=== PATIENT | male | born 1945 | race Caucasian/White ===

== ENCOUNTER 2022-09-02 10:38 | Day surgery (SDC) | payer OTHER ==
[~2022-09-02] VITALS: Ht 177.8 cm; Wt 100.2 kg
[2022-09-02] MEDS ORDERED: SILD25T PO (11:06)
[2022-09-02] MEDS ORDERED: HYDCHL25 PO (11:07)
[2022-09-02] MEDS ORDERED: ZOCOR20 MG PO (11:08)
[2022-09-02] MEDS ORDERED: LEVSOD150 PO (11:08)
[2022-09-02] MEDS ORDERED: KETO.5OPSO (11:09)
[2022-09-02] MEDS ORDERED: SIMBRINZA 1%-0.28 M1 (11:09)
[2022-09-02] MEDS ORDERED: LATANOPROST 0.7.5 M3 (11:10)
[2022-09-02] MEDS ORDERED: OCUFLOX5 M3 (11:10)
[2022-09-02] MEDS ORDERED: PREDNISOLONE ACE5 ML (11:11)
--- NOTE | 2022-09-02 12:30 | NUR ---
09/02/22 1230 Hebert Marte 10MLS OF BUPIVICAINE 0.25% MIXED 1:1 WITH 10MLS OF BUPIVICAINE 0.75% TO CREATE A LOCAL SOLUTION OF BUPIVICAINE 0.5% FOR INJECTION.
== END 2022-09-02 13:46 | disposition home or self-care (01) ==
LOC: ORSCSDS 10:38
PROVIDERS: Surgery
PROC: 0WUF0JZ Supplement Abdominal Wall with Synthetic Substitute, Open Approach (ICD-10-PCS; principal; 2022-09-02 12:00)
DX: K42.9 Umbilical hernia without obstruction or gangrene (principal); I10 Essential (primary) hypertension; E66.9 Obesity, unspecified; Z68.31 Body mass index [BMI] 31.0-31.9, adult; Z86.79 Personal history of other diseases of the circulatory system; E03.9 Hypothyroidism, unspecified; Z87.891 Personal history of nicotine dependence; Z79.899 Other long term (current) drug therapy
CPT/HCPCS: C1781; J1100; J2250; J2370; J2405; J2704; J3010

== ENCOUNTER 2023-02-18 21:54 | Observation (INO) | payer OTHER ==
[~2023-02-18] VITALS: Ht 182.9 cm; Wt 104.5 kg
[~2023-02-18 21:54] MED LIST: HYDCHL25 PO; KETO.5OPSO BOTHEYES; LATANOPROST 0.7.5 M3 BOTHEYES; LEVSOD150 PO; OCUFLOX5 M3 BOTHEYES; PREDNISOLONE ACE5 ML BOTHEYES; SILD25T PO; SIMBRINZA 1%-0.28 M1 BOTHEYES; ZOCOR20 MG PO
[2023-02-18 22:18] LABS: BASOPHILS ABSOLUTE AUTO 0.05 K/mm3 (0.00-0.23); BASOPHILS PERCENT AUTO 1 % (0-2); EOSINOPHILS ABSOLUTE AUTO 0.36 K/mm3 (0.00-0.68); EOSINOPHILS PERCENT AUTO 3 % (0-6); Hematocrit 44.8 % (37.0-53.0); Hemoglobin 14.9 g/dL (13.5-17.5); IMMATURE GRAN ABSOLUTE AUTO 0.04 K/mm3 (0.00-0.10); IMMATURE GRAN PERCENT AUTO 0 % (0-1); LYMPHOCYTES ABSOLUTE AUTO 4.55 K/mm3 (0.84-5.20); LYMPHOCYTES PERCENT AUTO 42 % (21-46); MONOCYTES ABSOLUTE AUTO 1.18 K/mm3 (0.16-1.47); MONOCYTES PERCENT AUTO 11 % (4-13); Mean Corpuscular HGB 31.4 pg (26.0-34.0); Mean Corpuscular HGB Conc 33.3 g/dL (31.5-36.5); Mean Corpuscular Volume 94 fL (80-100); Mean Platelet Volume 10.4 fL (9.1-12.4); NEUTROPHILS ABSOLUTE AUTO 4.55 K/mm3 (1.96-9.15); NEUTROPHILS PERCENT AUTO 42 % (41-73); Platelet Count 165 K/mm3 (150-400); RDW Coefficient Variation 12.7 % (11.7-14.2); RDW Standard Deviation 43.9 fL (35.1-46.3); Red Blood Cell Count 4.75 M/mm3 (4.30-5.90); White Blood Cell Count 10.73 K/mm3 (4.00-11.30)
[2023-02-18 22:57] LABS: Alanine Aminotransfer (ALT/SGP 21 U/L (12-78); Albumin, Blood 3.7 g/dL (3.4-5.0); Albumin/Globulin Ratio 1.1 (0.8-1.8); Alk Phos 65 U/L (50-136); Anion Gap 4 mmol/L (6-16); Aspartate Aminotrans (AST/SGOT 27 U/L (12-37); Bilirubin, Total 0.3 mg/dL (0.1-1.0); Blood Urea Nitrogen 23 mg/dL (8-24); Bun/Creatinine Ratio 20.2 (12.0-20.0); CO2, Blood 30 mmol/L (21-32); Chloride, Blood 104 mmol/L (98-108); Creatinine, Blood 1.14 mg/dL (0.60-1.20); Ethanol (Alcohol), Blood, Med <3 mg/dL; Globulin, Blood 3.3 g/dL (2.2-4.0); Glomerular Filtration Rate 66 (60-); Glucose, Blood 130 mg/dL (70-99); Potassium, Blood 3.7 mmol/L (3.5-5.5); Sodium, Blood 138 mmol/L (136-145)
[2023-02-18] MEDS ORDERED: VITAMIN D325 MC3 PO (23:31)
--- NOTE | 2023-02-19 02:28 | NUR ---
PT ARRIVED ON UNIT AT ~0115. AOX3-4. ALMOST COMPLETELY ORIENTED. VERY PLEASANT AND COOPERATIVE WITH CARE. DAUGHTERS ARRIVED ON FLOOR WITH HIM. TELEMETRY PLACED PER DR. RYAN. R SIDED WEAKNESS NOTED ON EXAM ALTHOUGH VERY MINOR. STRENGTH PRESENT BILATERALLY ON UPPER AND LOWER EXTREMITIES. TRANSFERRED WELL FROM [facility] TO BED, STEADY ON FEET. CARDIAC DIET. CBG CHECK PRN FOR S/S OF HYPOGLYCEMIA. PT DENIES PAIN OF ANY KIND. ABLE TO MAKE NEEDS KNOWN. CALL LIGHT LEFT WITHIN REACH.
--- NOTE | 2023-02-19 03:53 | NUR ---
PT HAS BEEN SLEEPING IN BED SINCE ADMISSION ASSESSMENT. FAMILY HAS BEEN IN ROOM WITH PT SINCE ARRIVING ON UNIT. PT HAS CONTINUED TO DENY ANY PAIN. TELE RUNNING NSR. BED LOCKED IN LOWEST POSITION. CALL LIGHT LEFT WITHIN REACH.
[2023-02-19 05:28] LABS: BASOPHILS ABSOLUTE AUTO 0.03 K/mm3 (0.00-0.23); BASOPHILS PERCENT AUTO 0 % (0-2); EOSINOPHILS ABSOLUTE AUTO 0.03 K/mm3 (0.00-0.68); EOSINOPHILS PERCENT AUTO 0 % (0-6); Hematocrit 42.6 % (37.0-53.0); Hemoglobin 14.4 g/dL (13.5-17.5); IMMATURE GRAN ABSOLUTE AUTO 0.05 K/mm3 (0.00-0.10); IMMATURE GRAN PERCENT AUTO 0 % (0-1); LYMPHOCYTES PERCENT AUTO 14 % (21-46); MONOCYTES ABSOLUTE AUTO 0.91 K/mm3 (0.16-1.47); MONOCYTES PERCENT AUTO 8 % (4-13); Mean Corpuscular HGB 31.8 pg (26.0-34.0); Mean Corpuscular HGB Conc 33.8 g/dL (31.5-36.5); Mean Corpuscular Volume 94 fL (80-100); Mean Platelet Volume 10.3 fL (9.1-12.4); NEUTROPHILS ABSOLUTE AUTO 9.38 K/mm3 (1.96-9.15); NEUTROPHILS PERCENT AUTO 78 % (41-73); Platelet Count 147 K/mm3 (150-400); RDW Coefficient Variation 12.7 % (11.7-14.2); RDW Standard Deviation 43.9 fL (35.1-46.3); Red Blood Cell Count 4.53 M/mm3 (4.30-5.90)
[2023-02-19 05:58] LABS: Albumin, Blood 3.5 g/dL (3.4-5.0); Albumin/Globulin Ratio 1.1 (0.8-1.8); Bilirubin, Total 0.5 mg/dL (0.1-1.0); Bun/Creatinine Ratio 20.6 (12.0-20.0); Creatinine, Blood 1.02 mg/dL (0.60-1.20); Globulin, Blood 3.1 g/dL (2.2-4.0); Potassium, Blood 4.2 mmol/L (3.5-5.5); Total Protein, Blood 6.6 g/dL (6.4-8.2)
[2023-02-19] MEDS ORDERED: ATORVASTATIN CA80 M1 PO (15:44)
[2023-02-19] MEDS ORDERED: ASPI81CH PO (15:45)
--- NOTE | 2023-02-19 17:18 | NUR ---
PT DISCHARGED FROM THE UNIT. IVS REMOVED. DISCHARGE INSTRUCTIONS REVIEWED. INSTUCTED ON FOLLOW UP APTS. MEDICATIONS FAXED TO [facility].
== END 2023-02-19 17:14 | disposition home or self-care (01) ==
LOC: ER 21:54 → MEDS 21:55
PROVIDERS: Emergency Medicine; ADMIT Student in an Organized Health Care Education/Training Program
DX: G45.1 Carotid artery syndrome (hemispheric) (principal); I65.22 Occlusion and stenosis of left carotid artery; E03.9 Hypothyroidism, unspecified; Z18.89 Other specified retained foreign body fragments; I25.2 Old myocardial infarction; E78.5 Hyperlipidemia, unspecified; I10 Essential (primary) hypertension
CPT/HCPCS: 36415; 70450; 70496; 70498; 71045; 80053; 83735; 84443; 85025; 93005; 93010; 93306; 96372; 97161; 99285-25; A9270; G0378; G0480; J1650; Q9967

== ENCOUNTER 2025-09-09 15:46 | Inpatient (IN) | payer OTHER ==
[~2025-09-09] VITALS: Ht 177.8 cm; Wt 105.2 kg
[~2025-09-09 15:46] MED LIST changes: +ASPI81CH PO; +ATORVASTATIN CA80 M1 PO; +VITAMIN D325 MC3 PO
[2025-09-09 16:29] LABS: BASOPHILS ABSOLUTE AUTO 0.04 K/mm3 (0.00-0.23); BASOPHILS PERCENT AUTO 0 % (0-2); EOSINOPHILS ABSOLUTE AUTO 0.08 K/mm3 (0.00-0.68); EOSINOPHILS PERCENT AUTO 1 % (0-6); Hematocrit 49.9 % (37.0-53.0); Hemoglobin 16.9 g/dL (13.5-17.5); IMMATURE GRAN ABSOLUTE AUTO 0.05 K/mm3 (0.00-0.10); IMMATURE GRAN PERCENT AUTO 0 % (0-1); LYMPHOCYTES ABSOLUTE AUTO 2.42 K/mm3 (0.84-5.20); LYMPHOCYTES PERCENT AUTO 20 % (21-46); MONOCYTES ABSOLUTE AUTO 2.07 K/mm3 (0.16-1.47); MONOCYTES PERCENT AUTO 17 % (4-13); Mean Corpuscular HGB Conc 33.9 g/dL (31.5-36.5); Mean Corpuscular Volume 92 fL (80-100); NEUTROPHILS ABSOLUTE AUTO 7.69 K/mm3 (1.96-9.15); NEUTROPHILS PERCENT AUTO 62 % (41-73); NRBC ABSOLUTE 0.00 K/mm3 (0.00-0.02); NRBC Auto 0.0 /100 WBC (0.0-0.2); Platelet Count 178 K/mm3 (150-400); RDW Coefficient Variation 13.8 % (11.7-14.2); RDW Standard Deviation 46.5 fL (35.1-46.3)
[2025-09-09 16:57] LABS: Alanine Aminotransfer (ALT/SGP 24.0 U/L (12-78); Albumin, Blood 4.1 g/dL (3.4-5.0); Albumin/Globulin Ratio 1.1 (0.8-1.8); Anion Gap 10.0 mmol/L (3-11); Aspartate Aminotrans (AST/SGOT 28.0 U/L (12-37); Bilirubin, Total 1.1 mg/dL (0.1-1.0); Blood Urea Nitrogen 42.0 mg/dL (8-24); CO2, Blood 30.0 mmol/L (21-32); Calcium, Blood 10.2 mg/dL (8.5-10.1); Chloride, Blood 96.0 mmol/L (98-108); Creatinine, Blood 1.26 mg/dL (0.60-1.20); Globulin, Blood 3.6 g/dL (2.2-4.0); Glucose, Blood 125.0 mg/dL (70-99); Potassium, Blood 4.4 mmol/L (3.5-5.5); Sodium, Blood 132.0 mmol/L (136-145); Total Protein, Blood 7.7 g/dL (6.4-8.2)
[2025-09-09] MEDS ORDERED: Metoclopramide HCl 5MG / ML 2ML Vial IV ONE (18:20)
[2025-09-09] MEDS ORDERED: FLU VACC TS2025(65UP)/MF59C/PF 45 MCG/0.5 ML SYRINGE IM SCH (18:45)
[2025-09-09] MEDS ORDERED: Morphine Sulfate 4 MG/1 ML Injection IV PRN (18:45)
[2025-09-09] MEDS ORDERED: Naloxone HCl 0.4MG / ML 1ML Vial IV PRN (18:45)
[2025-09-09] MEDS ORDERED: Ondansetron HCl 2 MG / ML 2ML Vial IV PRN (18:50)
[2025-09-09] MEDS ORDERED: NS 1,000 ML IV SCH (19:00)
[2025-09-09 19:25] LABS: Source, Urine Voided
[2025-09-09] MEDS ORDERED: LORazepam 2 MG/ML 1ML Injection IV PRN (19:25)
[2025-09-09 19:39] LABS: Bilirubin, Urine Neg (Neg); Color, Urine Yellow (P-Yellow); Glucose Qualitative, Urine Neg (Neg); Ketones, Urine Neg (Neg); Leukocyte Esterase, Urine Neg (Neg); Protein, Urine 2+ (Neg); Specific Gravity, Urine 1.010 (1.003-1.022); Urobilinogen, Urine NORM (Normal)
[2025-09-09 19:59] LABS: White Blood Cells, Urine 0-2 /hpf (0-5)
[2025-09-09 20:41] LABS: Prothrombin Time Results 11.0 Sec (9.7-11.5)
--- NOTE | 2025-09-09 21:20 | NUR ---
PT ARRIVES TO ROOM FROM ED VIA GURNEY; STANDS AND MOVES TO BED WITH SBA. PT DAUGHTER (VALERIE) AT BEDSIDE. PT AND FAMILY ORIENTED TO ROOM.
[2025-09-09 21:27] VITALS: BP 148/87
[2025-09-09 22:38] LABS: Magnesium, Blood 2.4 mg/dL (1.6-2.4); Phosphorus, Blood 4.1 mg/dL (2.5-4.9)
[2025-09-09] MEDS ORDERED: ALBU90OI INH (22:46)
[2025-09-09] MEDS ORDERED: MOME220I INH (22:46)
[2025-09-09 23:57] VITALS: BP 144/80
[2025-09-10 03:55] VITALS: BP 140/70
[2025-09-10 04:07] LABS: BASOPHILS ABSOLUTE AUTO 0.03 K/mm3 (0.00-0.23); BASOPHILS PERCENT AUTO 0 % (0-2); EOSINOPHILS ABSOLUTE AUTO 0.07 K/mm3 (0.00-0.68); EOSINOPHILS PERCENT AUTO 1 % (0-6); Hematocrit 51.2 % (37.0-53.0); Hemoglobin 16.9 g/dL (13.5-17.5); IMMATURE GRAN ABSOLUTE AUTO 0.03 K/mm3 (0.00-0.10); IMMATURE GRAN PERCENT AUTO 0 % (0-1); LYMPHOCYTES ABSOLUTE AUTO 1.88 K/mm3 (0.84-5.20); LYMPHOCYTES PERCENT AUTO 22 % (21-46); MONOCYTES ABSOLUTE AUTO 1.51 K/mm3 (0.16-1.47); MONOCYTES PERCENT AUTO 17 % (4-13); Mean Corpuscular HGB Conc 33.0 g/dL (31.5-36.5); Mean Corpuscular Volume 93 fL (80-100); NEUTROPHILS ABSOLUTE AUTO 5.17 K/mm3 (1.96-9.15); NEUTROPHILS PERCENT AUTO 60 % (41-73); NRBC ABSOLUTE 0.00 K/mm3 (0.00-0.02); NRBC Auto 0.0 /100 WBC (0.0-0.2); Platelet Count 194 K/mm3 (150-400); RDW Coefficient Variation 13.7 % (11.7-14.2); RDW Standard Deviation 46.4 fL (35.1-46.3)
--- NOTE | 2025-09-10 04:20 | NUR ---
SHIFT SUMMARY NO ACUTE EVENTS OVERNIGHT. PT WITH NG TUBE PLACED IN ED; CONNECTED TO LIS AND WITH DARK OUTPUT. PT REPORTS FEELING RELIEF AFTER TUBE WAS PLACED. PT PASSING FLATUS DURING NOC SHIFT. PT DID NOT NEED MEDICATION FOR PAIN/NAUSEA OF THIS NOTE. PT REMAINS NPO.
[2025-09-10 04:29] LABS: Alanine Aminotransfer (ALT/SGP 24.0 U/L (12-78); Albumin, Blood 4.1 g/dL (3.4-5.0); Albumin/Globulin Ratio 1.1 (0.8-1.8); Anion Gap 9.0 mmol/L (3-11); Aspartate Aminotrans (AST/SGOT 33.0 U/L (12-37); Bilirubin, Total 1.3 mg/dL (0.1-1.0); Blood Urea Nitrogen 43.0 mg/dL (8-24); CO2, Blood 31.0 mmol/L (21-32); Calcium, Blood 9.9 mg/dL (8.5-10.1); Chloride, Blood 97.0 mmol/L (98-108); Creatinine, Blood 1.26 mg/dL (0.60-1.20); Globulin, Blood 3.6 g/dL (2.2-4.0); Glucose, Blood 136.0 mg/dL (70-99); Magnesium, Blood 2.7 mg/dL (1.6-2.4); Potassium, Blood 4.2 mmol/L (3.5-5.5); Sodium, Blood 133.0 mmol/L (136-145); Total Protein, Blood 7.7 g/dL (6.4-8.2)
[2025-09-10 07:09] VITALS: BP 139/80
[2025-09-10] MEDS ORDERED: Ipratropium/Albuterol SulF 2.5-0.5MG/3 ML Amp INH PRN (09:05)
--- NOTE | 2025-09-10 09:53 | NUR ---
HALIMA/RT IN TO SEE PT. PT REPORTING DIFFICULTY BREATHING, STATING FEELS LIKE "AIR LOCK" IN CHEST. 02 SATS 93% ON RA. RT IN TO SEE PT.
[2025-09-10 12:20] VITALS: BP 142/84
[2025-09-10 15:37] VITALS: BP 148/85
[2025-09-10] MEDS ORDERED: Mometasone Furoate Inhaler 220 mcg 14 ACT INH SCH (15:40)
[2025-09-10] MEDS ORDERED: Albuterol HFA200 ACT/6.7 GM INH INH PRN (15:55)
--- NOTE | 2025-09-10 17:09 | NUR ---
SHIFT SUMMARY NG CONTINUES TO PUT OUT DARK FLUID. PT DENIES COMPLAINTS AT THIS TIME. PT HAS HAD HICCUPS ALL DAY. NOT HAPPENING WHEN SLEEPING. DAUGHTER AT BEDSIDE. WILL CONTINUE TO MONITOR.
[2025-09-10 20:58] VITALS: BP 122/63
[2025-09-10] MEDS ORDERED: Ofloxacin 0.3% Opth Soln 5 ML BOTHEYES SCH (21:00)
[2025-09-10] MEDS ORDERED: Metoclopramide HCl 5MG / ML 2ML Vial IV ONE (21:10)
[2025-09-10 21:46] LABS: Anion Gap 10.0 mmol/L (3-11); Blood Urea Nitrogen 42.0 mg/dL (8-24); CO2, Blood 26.0 mmol/L (21-32); Calcium, Blood 9.5 mg/dL (8.5-10.1); Chloride, Blood 103.0 mmol/L (98-108); Creatinine, Blood 1.08 mg/dL (0.60-1.20); Glucose, Blood 138.0 mg/dL (70-99); Potassium, Blood 4.0 mmol/L (3.5-5.5); Sodium, Blood 135.0 mmol/L (136-145)
[2025-09-11] VITALS (7 sets, daily range): BP systolic 103–135; BP diastolic 60–88
--- NOTE | 2025-09-11 04:54 | NUR ---
SHIFT SUMMARY: PT WITH NGT SET TO LIS. PT C/O INTRACTABLE HICCUPS GOT RELIEF FROM 10 OF IV REGLAN AND WOULD LIKE FOR REGLAN TO BE PUT ON EMAR PRN FOR USE NEEDED. NGT O/P OF [place]OUN 2000 THIS SHIFT. PATIENT HAS NOT HAD MUCH URINE OUTPUT THIS SHIFT DOES NOT C/O ANY SYMPTOMS RELATED TO URINARY RETENTION OR UTI SUCH BURNING. VITALS HAVE BEEN STABLE, AND NO ACUTE EVENTS WERE NOTED OVER NIGHT. BED IN LOW POSITION WITH BED ALARM ACTIVATED. CALL PATTERSON AND PERSONAL BELONGINGS WITHIN REACH. DAUGHTER AT B/S
--- NOTE | 2025-09-11 08:31 | NUR ---
PATIENT UP TO CHAIR A CHAIR.ORAL CARE ITEMS GIVEN.
--- NOTE | 2025-09-11 10:08 | NUR ---
NGT: PT UP TO CHANGE GOWN AND TRY TO USE URINAL. PT NGT SLIPPED OUT OF NOSE AND TO THE FLOOR HE STOOD. PT ABLE TO PASS FLATUS. 700CC IN NG CONTAINER AT THIS TIME. WILL SPEAK TO DOCTOR PRIOR TO REPLACING NGT. ABDOMEN SOFT. NO NAUSEA AT THIS TIME. EMESIS BAG PLACED IN REACH.
[2025-09-11] MEDS ORDERED: Metoclopramide HCl 5MG / ML 2ML Vial IV PRN (10:25)
[2025-09-11] MEDS ORDERED: NS 1,000 ML IV SCH (10:25)
--- NOTE | 2025-09-11 18:11 | NUR ---
PT HAS BEEN STABLE THIS SHIFT. NGT SLIPPED OUT THIS AM. PT HAS HAD NO NAUSEA OR EMESIS. PT PASSING OCCASIONAL FLATUS. REMAINS NPO. PT HAS AMBULATED IN THE HALLWAY WITH STAFF AND MOBILIZED TO CHAIR. IV FLUIDS INFUSING PER ORDERS. PT URINE OUTPUT IMPROVING. PULL UP ON FOR OCCASIONAL LEAKAGE. REGLAN PRN FOR HICCUPS. PT TO HAVE AM LABS. FAMILY AT BEDSIDE, ATTENTIVE.
--- NOTE | 2025-09-11 20:05 | NUR ---
CALL TO HOSPITALIST. PT HAVING IRREGULAR HEART RATE APICALLY AND DIFFICULT TO OBTAIN ACCURATE HEART RATE D/T ABDOMINAL HICCUPS. HEART RATE ON MONITOR FLUCTUATING BETWEEN 90S-130S ON CONTINUOUS BIOX. PT A/O X4, DENIES SOB OR CHEST PAIN/PRESSURE. NEW ORDER RECEIVED FOR TELEMETRY MONITORING.
--- NOTE | 2025-09-11 20:33 | NUR ---
CALL TO HOSPITALIST. PT PLACED ON TELEMETRY AND RHYTHM WAS AFIB AT 140BPM AT 2017. PT DENIES KNOWN HISTORY OF AFIB. AT 2023 THIS RN RECEIVED A CALL FROM TELEMETRY THAT PT CONVERTED TO NSR AT 96BPM. CALL PLACED TO HOSPITALIST TO NOTIFY OF THE ABOVE. NO NEW ORDERS AT THIS TIME.
[2025-09-12] VITALS (27 sets, daily range): BP systolic 98–141; BP diastolic 53–92
--- NOTE | 2025-09-12 02:42 | NUR ---
SPOKE WITH RT REGARDING DULERA INHALER ORDERED UNDER RT HEADING-RT STATED ASMANEX IS SUB FOR DULERA, AND ADMITTING RN NOTED PT TAKES ASMANEX AT HOME.
[2025-09-12 04:28] LABS: BASOPHILS ABSOLUTE AUTO 0.05 K/mm3 (0.00-0.23); BASOPHILS PERCENT AUTO 1 % (0-2); EOSINOPHILS ABSOLUTE AUTO 0.12 K/mm3 (0.00-0.68); EOSINOPHILS PERCENT AUTO 2 % (0-6); Hematocrit 49.8 % (37.0-53.0); Hemoglobin 16.4 g/dL (13.5-17.5); IMMATURE GRAN ABSOLUTE AUTO 0.08 K/mm3 (0.00-0.10); IMMATURE GRAN PERCENT AUTO 1 % (0-1); LYMPHOCYTES ABSOLUTE AUTO 2.59 K/mm3 (0.84-5.20); LYMPHOCYTES PERCENT AUTO 35 % (21-46); MONOCYTES ABSOLUTE AUTO 1.70 K/mm3 (0.16-1.47); MONOCYTES PERCENT AUTO 23 % (4-13); Mean Corpuscular HGB Conc 32.9 g/dL (31.5-36.5); Mean Corpuscular Volume 93 fL (80-100); NEUTROPHILS ABSOLUTE AUTO 2.87 K/mm3 (1.96-9.15); NEUTROPHILS PERCENT AUTO 39 % (41-73); NRBC ABSOLUTE 0.00 K/mm3 (0.00-0.02); NRBC Auto 0.0 /100 WBC (0.0-0.2); Platelet Count 196 K/mm3 (150-400); RDW Coefficient Variation 13.7 % (11.7-14.2); RDW Standard Deviation 46.9 fL (35.1-46.3)
[2025-09-12 04:47] LABS: Anion Gap 10.0 mmol/L (3-11); Blood Urea Nitrogen 62.0 mg/dL (8-24); CO2, Blood 24.0 mmol/L (21-32); Calcium, Blood 8.8 mg/dL (8.5-10.1); Chloride, Blood 107.0 mmol/L (98-108); Creatinine, Blood 1.34 mg/dL (0.60-1.20); Glucose, Blood 121.0 mg/dL (70-99); Potassium, Blood 3.7 mmol/L (3.5-5.5); Sodium, Blood 137.0 mmol/L (136-145)
[2025-09-12] MEDS ORDERED: Metoprolol Tartrate 1 MG/ML 5 ML VIAL IV ONE ×3 (05:25→22:45)
[2025-09-12] MEDS ORDERED: Potassium Chl 20MEQ/Water100ML 100 ML IV ONE (05:30)
[2025-09-12 05:41] LABS: Magnesium, Blood 2.8 mg/dL (1.6-2.4); Phosphorus, Blood 3.9 mg/dL (2.5-4.9)
--- NOTE | 2025-09-12 07:17 | NUR ---
SHIFT SUMMARY NOC/TELEMETRY EVENT. THIS RN NOTIFIED BY TELEMETRY OF CONVERTING FROM NSR TO AFIB/AFLUTTER APPROX 0500. VSS ASIDE FROM [place]. PT ASYMPTOMATIC. CALL TO HOSPITALIST, NEW ORDERS RECEIVED TO ADD MAG LEVEL, AND PHOS LEVEL, KCL PIGGY BACK 20MEQ X1 NOW, AND LOPRESSOR 5MG ONE TIME NOW. HEART RATE CAME DOWN AFTER LOPRESSOR, PT TOLERATED WELL. PT IMPULSIVE GETTING OUT OF BED, BEDALARM SET FOR SAFETY. DAUGHTER AT BEDSIDE T/O THE NIGHT. PT DENIES NAUSEA AND VOMITING, TOLERATED NG TUBE BEING OUT.
[2025-09-12] MEDS ORDERED: NS 1,000 ML IV SCH (08:50)
--- NOTE | 2025-09-12 10:12 | NUR ---
ASSUMED CARE OF PT @0700. AXO4. VSS WITH ASYMPTOMATIC AFLUTTER RVR 130'S. BP STABLE. IV POTASSIUM INFUSING - INFILTRATED - IV PULLED AND REPLACED, NOW BEING TOLERATED. PT ADVANCED TO CL DIET BY SURGEON - PT TOLERATED WELL. ABD WITH MILD DISTENSION - HICCUPS REMAIN. HAVING FLATULENCE. NO BM NOTED YET. URINE REMAINS DARELL. DR OLIVEIRA CALLED REGARDING CONTINUED AFLUTTER RVR 130'S. IV LOPRESSOR ORDERED - ADMINISTERED 5MG - TOLERATED WELL, BP STABLE, HR STARTED AT 132 AND DECREASED TO 125. PT ASYMPTOMATIC. DECISION MADE TO TRANSFER TO PCU STATUS - O BEDS AVAILABLE SO TRANSFERRING PT TO ICU 7 PCU STATUS. REPORT GIVEN TO ROMEO Jung RN. PT TRANSFERRED OUT OF UNIT @4879.
[2025-09-12] MEDS ORDERED: Heparin Sodium,Porcine/0.5 NS 500 ML IV SCH (11:10)
[2025-09-12] MEDS ORDERED: Heparin Sodium 5000 Units/ML 1ML MDV IV ONE (11:10)
--- NOTE | 2025-09-12 11:58 | NUR ---
UPDATE PT CONVERTING FROM AFLUTTER TO SR 70'S AT APPROX 1121. EKG DONE SHOWING SR W 1ST DEGREE AV BLOCK. DR. OLIVEIRA CALLED AND NOTIFIED OF CHANGE. DR. OLIVEIRA GIVING THIS RN VERBAL INSTRUCTIONS TO CONTINUE WITH THE HEPARIN GTT AND TO SLOWLY TITRATE THE PT OFF OF THE CARDIZEM GTT. GERONTOLOGICAL NURSE PRACTITIONER SIDDHARTHA Ziegler NOTIFIED.
--- NOTE | 2025-09-12 17:18 | NUR ---
SHIFT SUMMARY PATIENTS ABD MILDLY DISTENDED, BUT BOWEL TONES ARE PRESENT. PATIENT IS ABLE TO TOLERATE FULL LIQUID DIET WITH NO COMPLAINTS OF NAUSEA AND VOMITING. PATIENT CAME TO ICU IN AFIB RVR, BUT HAS BEEN IN SINUS RHYTHM WITH 1ST DEGREE BLOCK SINCE APPROX 1130. PATIENT IS A&OX4 AND ABLE TO MAKE NEEDS KNOWN. NO FOCAL DEFICITS. PATIENT IS ABLE TO TRANSFER TO A CHAIR WITH ONE ASSIST AND USE A URINAL WITH ASSISTANCE. PATIENT WAS BLADDER SCANNED AND HAD 297 IN HIS BLADDER. HEPARIN GTT INFUSING PER EMAR. SEE FLOWSHEET FOR TITRATIONS. FAMILY AT BEDSIDE THROUGHT THE SHIFT. CALL LIGHT NEAR.
[2025-09-12] MEDS ORDERED: Dose Adjust by Pharmacy XX STA (20:34)
[2025-09-13] VITALS (21 sets, daily range): BP systolic 83–119; BP diastolic 58–83
[2025-09-13 03:22] LABS: BASOPHILS ABSOLUTE AUTO 0.09 K/mm3 (0.00-0.23); BASOPHILS PERCENT AUTO 1 % (0-2); EOSINOPHILS ABSOLUTE AUTO 0.19 K/mm3 (0.00-0.68); EOSINOPHILS PERCENT AUTO 2 % (0-6); Hematocrit 47.9 % (37.0-53.0); Hemoglobin 15.7 g/dL (13.5-17.5); IMMATURE GRAN ABSOLUTE AUTO 0.11 K/mm3 (0.00-0.10); IMMATURE GRAN PERCENT AUTO 1 % (0-1); LYMPHOCYTES ABSOLUTE AUTO 2.65 K/mm3 (0.84-5.20); LYMPHOCYTES PERCENT AUTO 26 % (21-46); MONOCYTES ABSOLUTE AUTO 1.79 K/mm3 (0.16-1.47); MONOCYTES PERCENT AUTO 18 % (4-13); Mean Corpuscular HGB Conc 32.8 g/dL (31.5-36.5); Mean Corpuscular Volume 95 fL (80-100); NEUTROPHILS ABSOLUTE AUTO 5.29 K/mm3 (1.96-9.15); NEUTROPHILS PERCENT AUTO 52 % (41-73); NRBC ABSOLUTE 0.00 K/mm3 (0.00-0.02); NRBC Auto 0.0 /100 WBC (0.0-0.2); Platelet Count 187 K/mm3 (150-400); RDW Coefficient Variation 13.8 % (11.7-14.2); RDW Standard Deviation 48.1 fL (35.1-46.3)
[2025-09-13 03:37] LABS: Anion Gap 9.0 mmol/L (3-11); Blood Urea Nitrogen 39.0 mg/dL (8-24); CO2, Blood 22.0 mmol/L (21-32); Calcium, Blood 8.2 mg/dL (8.5-10.1); Chloride, Blood 113.0 mmol/L (98-108); Creatinine, Blood 1.01 mg/dL (0.60-1.20); Glucose, Blood 110.0 mg/dL (70-99); Magnesium, Blood 2.6 mg/dL (1.6-2.4); Potassium, Blood 3.8 mmol/L (3.5-5.5); Sodium, Blood 140.0 mmol/L (136-145)
[2025-09-13] MEDS ORDERED: Dose Adjust by Pharmacy XX STA ×2 (04:15→12:01)
[2025-09-13] MEDS ORDERED: Metoprolol Tartrate 1 MG/ML 5 ML VIAL IV PRN (05:10)
--- NOTE | 2025-09-13 06:24 | NUR ---
SHIFT SUMMARY: NO ACUTE CHANGES T/O THE NIGHT. PT REMAINS A&O X4, ABLE TO MAKE NEEDS KNOWN, COMMUNICATES APPROPRIATELY W/STAFF. SBA TO USE URINAL. AFEBRILE, DENIED ANY PAIN. SBP SOFT 90S-110S, MAP>65. PT HR SINUS AT START OF SHIFT, CONVERTED TO A-FLUTTER. HR 90-140S. METOPROLOL IV GIVEN ONCE THIS SHIFT DUE TO SUSTAINED HR IN 140S. SEE EMAR FOR ADMINISTRATION. PT REMAINS ON RA. DENIES SOB. BREATHS EVEN AND UNLABORED.SATS>92%. ABD MILDLY DISTENDED, FIRM. DENIES N/V. BT ACTIVE X4. TOLERATING CLEAR LIQUIDS. PT CONTINUES USING URINAL TO VOID. URINATING CONCENTRATED YELLOW URINE. PIV IN R WIRST AND RFA. THIS RN TO REPORT TO ONCOMING REUBEN
--- NOTE | 2025-09-13 07:00 | NUR ---
ASSUMPTION OF CARE ASSUMED CARE OF PATIENT AT APPROX 0700. PATIENT A&OX4 AND ABLE TO MAKE NEEDS KNOWN. HR AFLUTTER IN THE 110'S. BP STABLE WITH MAPS >65. PATIENT ON RA WITH SPO2 >94%. L/S CLEAR WITH WHEEZE. HEPARIN GTT INFUSING PER EMAR. DAUGHTER AT BEDSIDE. CALL LIGHT NEAR.
[2025-09-13] MEDS ORDERED: Amiodarone HCl 150 MG in NS 100 ML IV ONE (09:25)
[2025-09-13] MEDS ORDERED: Amiodarone HCl 450 MG in NS 250 ML IV SCH (09:25)
[2025-09-13] MEDS ORDERED: NS 500 ML IV SCH (10:00)
[2025-09-13] MEDS ORDERED: NS 1,000 ML IV SCH (16:00)
--- NOTE | 2025-09-13 18:07 | NUR ---
SHIFT SUMMARY PATIENT A&OX4, MOVES ALL LIMBS SPONTANEOUSLY. [place], BUT ABLE TO MAKE NEEDS KNOWN WITH CALL LIGHT. HR A FIB/FLUTTER IN THE 90S-110S. BP STABLE WITH MAPS >65. PATIENT ON RA WITH SPO2 >94%. PATIENT UP TO CHAIR WITH ONE ASSIST. PATIENT USES URINAL WITH ASSISTANCE WITH YELLOW URINE OUT. PATIENT TOLERATING FULL LIQUID DIET WITH NO COMPLAINTS OF N/V. PATIENT HAD BM X2 THIS SHIFT. PATIENT HAD HICCUPS OFF AND ON THROUGHTOUT THE SHIFT. HEPARIN AND AMIO GTTS RUNNING PER EMAR. AMIO CAN BE SHUT OFF AT 1030 ON 09/14. FAMILY AT BEDSIDE THROUGHOUT THE SHIFT UPDATED ON PLAN OF CARE. CALL LIGHT NEAR.
[2025-09-14] VITALS (10 sets, daily range): BP systolic 98–123; BP diastolic 54–107
[2025-09-14 04:04] LABS: Hematocrit 42.8 % (37.0-53.0); Hemoglobin 13.5 g/dL (13.5-17.5); Platelet Count 186 K/mm3 (150-400)
[2025-09-14 04:29] LABS: Anion Gap 10.0 mmol/L (3-11); Blood Urea Nitrogen 23.0 mg/dL (8-24); CO2, Blood 19.0 mmol/L (21-32); Calcium, Blood 7.8 mg/dL (8.5-10.1); Chloride, Blood 114.0 mmol/L (98-108); Creatinine, Blood 0.98 mg/dL (0.60-1.20); Glucose, Blood 118.0 mg/dL (70-99); Potassium, Blood 3.6 mmol/L (3.5-5.5); Sodium, Blood 139.0 mmol/L (136-145)
[2025-09-14] MEDS ORDERED: Dose Adjust by Pharmacy XX STA (04:56)
--- NOTE | 2025-09-14 05:46 | NUR ---
SHIFT SUMMARY: NO SIGNIFICANT OVERNIGHT CHANGES. PT REMAINS ON AMIO GTT AND REQUIRED PRN METOPROLOL FOR RATE CONTROL. REMAINS IN ATRIAL RHYTHM 100-140. BP IS STABLE. PT DENIES NAUSEA, PAIN, OR SHORTNESS OF BREATH. ONLY COMPLAINT IS TRANSIENT HICCUPS FOR THE LAST SEVERAL DAYS. NOTHING ELSE NOTABLE FROM THIS SHIFT.
[2025-09-14] MEDS ORDERED: CefTRIAXone 2000 MG Vial IM SCH (17:05)
[2025-09-14] MEDS ORDERED: MetroNIDAZOLE 500MG/NS 100 ml 100 ML IV SCH (17:10)
--- NOTE | 2025-09-14 17:14 | NUR ---
UPDATE: PT IS DROWSY, ORIENTED TO SELF/PLACE/YEAR, DISORIENTED TO SITUATION. MORE CONFUSED THAN THIS AM. PUPILS ARE EQUAL, AND REACTIVE. FOLLOWING COMMANDS.BP STABLE, HR 120'S. TEMP 102.4. PT C/O URGENCY WITH URINATION, FOUL STRONG SMELL NOTED, DARK DARELL IN COLOR. PT DENIES PAIN WITH URINATION. PT REMAINS ON RA WITH SPO2 ABOVE 92% NON-PRODUCTIVE COUGH NOTED. CALLED WITH ASSESSMENT FINDINGS; ORDERS FOR BLOOD CULTURES, URINALYSIS, AND ANTIBIOTICS GIVEN.
[2025-09-14 17:50] LABS: Source, Urine Straight Cath
[2025-09-14 17:58] LABS: Color, Urine Yellow (P-Yellow); Glucose Qualitative, Urine Neg (Neg); Ketones, Urine 1+ (Neg); Leukocyte Esterase, Urine 2+ (Neg); Protein, Urine 2+ (Neg); Specific Gravity, Urine 1.020 (1.003-1.022); Urobilinogen, Urine 1+ (Normal)
[2025-09-14] MEDS ORDERED: CefTRIAXone Sodium 2,000 MG in NS 100 ML IV SCH (18:00)
[2025-09-14 18:09] LABS: Bilirubin, Urine 1+ (Neg)
[2025-09-14 18:12] LABS: Red Blood Cells, Urine 0-2 /hpf (0-2)
--- NOTE | 2025-09-14 18:28 | NUR ---
SHIFT SUMMARY: SEE PREVIOUS NOTES. PT IS ALERT AND ORIENTED X 3, DISORIENTED TO SITUATION AT TIMES. PT DENIES ANY PAIN AT THIS TIME. PT ON 2L OF OXYGEN VIA NC, UNABLE TO OBTAIN CONSISTANT SPO2 MONITORING DUE TO AFIB. CHANGED EAR PROBE SITE. PT DENIES ANY SOB. NON-PRODUCTIVE COUGH NOTED. RR MID 20'S. SPO2 SPOT CHECK 95% WITH GOOD PLEATH. TMAX 102.4, ACETAMINOPHEN GIVEN PER JAN. PT IN AFIB WITH HR 120'S, MADE AWARE, PRN METROPOLOL IV GIVEN FOR RATE CONTROL. PT ON FULL LIQUID DIET, TOLERATING PO INTAKE, POOR APPETITE NOTED. PT HAD ONE LARGE LOOSE BM THIS AM, ALONG WITH TWO SMALL SOFT BROWN BOWEL MOVMENTS. PT PASSING GAS, ACTIVE BOWEL TONES IN ALL QUADRANTS. PT DENIES NAUSEA. MILD ABD DISTENTION NOTED, DENIES TENDERNESS. PT HAVING URGENCY WITH URINATION, STRONG FOUL ODOR NOTED, MD AWARE, URINALYSIS COLLECTED. URINE CLOUDY AND DARELL IN COLOR, PT INCONTINENT, PUREWICK IN PLACE. PT REPOSITIONED Q2HRS. HEPARIN INFUSING AT 14U/KG/HR. PLAN OF CARE ONGOING.
[2025-09-15] VITALS (10 sets, daily range): BP systolic 83–112; BP diastolic 53–75
--- NOTE | 2025-09-15 02:10 | NUR ---
PT TRANSFER AT 0204 TO [facility], BELONGINGS SENT WITH PT.
[2025-09-15 03:15] LABS: pH Blood Venous 7.45 (7.34-7.37)
[2025-09-15 03:25] LABS: Hematocrit 41.0 % (37.0-53.0); Hemoglobin 13.3 g/dL (13.5-17.5); Mean Corpuscular HGB Conc 32.4 g/dL (31.5-36.5); Mean Corpuscular Volume 93 fL (80-100); NRBC ABSOLUTE 0.00 K/mm3 (0.00-0.02); NRBC Auto 0.0 /100 WBC (0.0-0.2); Platelet Count 189 K/mm3 (150-400); RDW Coefficient Variation 13.8 % (11.7-14.2); RDW Standard Deviation 48.0 fL (35.1-46.3)
[2025-09-15 03:47] LABS: BAND PERCENT MAN 9 % (0-8); BASOPHILS ABSOLUTE MAN 0.00 K/mm3 (0.00-0.23); BASOPHILS PERCENT MAN 0 % (0-2); EOSINOPHILS ABSOLUTE MAN 0.00 K/mm3 (0.00-0.68); EOSINOPHILS PERCENT MAN 0 % (0-6); LYMPHOCYTES ABSOLUTE MAN 2.34 K/mm3 (0.84-5.20); LYMPHOCYTES PERCENT MAN 10 % (21-46); MONOCYTES ABSOLUTE MAN 2.81 K/mm3 (0.16-1.47); MONOCYTES PERCENT MAN 12 % (4-13); MYELOCYTE ABSOLUTE MAN 0.46 K/mm3 (0.00-0.00); MYELOCYTE PERCENT MAN 2 % (0-0); NEUTROPHILS ABSOLUTE MAN 17.82 K/mm3 (1.96-9.15); SEG NEUTROPHILS PERCENT MAN 67 % (41-73)
[2025-09-15 03:48] LABS: Anion Gap 10.0 mmol/L (3-11); Blood Urea Nitrogen 18.0 mg/dL (8-24); CO2, Blood 20.0 mmol/L (21-32); Calcium, Blood 7.6 mg/dL (8.5-10.1); Chloride, Blood 114.0 mmol/L (98-108); Creatinine, Blood 1.12 mg/dL (0.60-1.20); Glucose, Blood 112.0 mg/dL (70-99); Potassium, Blood 3.3 mmol/L (3.5-5.5); Sodium, Blood 141.0 mmol/L (136-145)
[2025-09-15] MEDS ORDERED: Dose Adjust by Pharmacy XX STA (04:08)
--- NOTE | 2025-09-15 04:52 | NUR ---
PT ARRIVED TO PCU 20 FROM ICU. PT AXOX4, ABLE TO USE CALL LIGHT APPROPRIATELY. PT REMAINS IN AFLUTTER RATE BETWEEN 100-130S WITH OCCASIONAL PVCS. BP ON THE SOFT SIDE BUT MAP REMAINS >65. PT ON RA WITH 02> 95%. ALL OTHER VSS. MALEWICK IN PLACE. BED IN LOWEST POSITION AND CALL LIGHT WITHIN REACH. PT MAY GO FOR POTENTIAL CARDIOVERSION TODAY.
--- NOTE | 2025-09-15 05:11 | NUR ---
BOTH DAUGHTERS RANJIT AND CHELSY NOTIFIED VIA PHONE CALL THAT THERE DAD WAS WA S TRANSFERED TO [facility] AND BOTH UNDERSTOOD
--- NOTE | 2025-09-15 07:58 | NUR ---
CALL TO this rn called md marin to notify of soft blood pressure 83/61 (68), and stated to hold morning metoprolol, okay to give oral amio, and will be in to see the patient. this rn updated daughter, juli, at bedside.
[2025-09-15] MEDS ORDERED: Dexamethasone Sod Phos 10 MG/ML 1ML VIAL IV ONE (08:20)
--- NOTE | 2025-09-15 08:47 | NUR ---
IN ROOM Md Malhotra in room and discussing plan of care with daughter, juli, at beside, and patient. The plan is to run labs and do a acth test, load with digoxin, hold off on cardizem, repeat ct/ultrasound abd, and continue iv abx. Md Malhotra discused the rationale for the test with the daughter.
[2025-09-15] MEDS ORDERED: Cosyntropin 0.25 MG / ML 1ML Vial IV ONE (09:00)
--- NOTE | 2025-09-15 11:51 | NUR ---
PATIENT TAKEN TO IMAGING FOR CT AT 1151.
--- NOTE | 2025-09-15 12:31 | NUR ---
PT RETURNED FROM CT AT 1210.
--- NOTE | 2025-09-15 18:10 | NUR ---
SHIFT SUMMARY PATIENT A/O X 4 AND COOPERATIVE WITH CARE. HE HAS BEEN TIRED BUT EASILY AROUSED. FAMILY AT BEDSIDE FOR MOST OF SHIFT. NO ACUTE NEURO SYMPTOMS. PATIENT IN A FLUTTER 70-140s THROUGHOUT SHIFT, DENIES CHEST PAIN/PRESSURE. MD CONSIDERING CARDIOVERSION TOMORROW. SATS >95% ON ROOM AIR. BP SOFT, REMAINS >100 SYSTOLIC MOST OF SHIFT. LUNG SOUNDS CLEAR THROUGHOUT. BOWEL TONES PRESENT IN ALL QUADRANTS. PT HAD ONE LARGE, LOOSE STOOL THIS SHIFT. WICKING SYSTEM IN PLACE, CONNECTED TO SUCTION. PATIENT EATING FULL LIQUID DIET, TOLERATES INTAKE WELL. PATIENT AND FAMILY AGREEABLE TO PLAN OF CARE. BED LOCKED IN LOWEST SETTING, CALL LIGHT IN REACH.
[2025-09-16 04:00] VITALS: BP 115/73
[2025-09-16 05:16] LABS: BASOPHILS ABSOLUTE AUTO 0.13 K/mm3 (0.00-0.23); BASOPHILS PERCENT AUTO 0 % (0-2); EOSINOPHILS ABSOLUTE AUTO 0.01 K/mm3 (0.00-0.68); EOSINOPHILS PERCENT AUTO 0 % (0-6); Hematocrit 38.8 % (37.0-53.0); Hemoglobin 12.9 g/dL (13.5-17.5); IMMATURE GRAN ABSOLUTE AUTO 1.36 K/mm3 (0.00-0.10); IMMATURE GRAN PERCENT AUTO 4 % (0-1); LYMPHOCYTES ABSOLUTE AUTO 2.87 K/mm3 (0.84-5.20); LYMPHOCYTES PERCENT AUTO 9 % (21-46); MONOCYTES ABSOLUTE AUTO 2.10 K/mm3 (0.16-1.47); MONOCYTES PERCENT AUTO 7 % (4-13); Mean Corpuscular HGB Conc 33.2 g/dL (31.5-36.5); Mean Corpuscular Volume 95 fL (80-100); NEUTROPHILS ABSOLUTE AUTO 24.59 K/mm3 (1.96-9.15); NEUTROPHILS PERCENT AUTO 79 % (41-73); NRBC ABSOLUTE 0.00 K/mm3 (0.00-0.02); NRBC Auto 0.0 /100 WBC (0.0-0.2); Platelet Count 196 K/mm3 (150-400); RDW Coefficient Variation 14.1 % (11.7-14.2); RDW Standard Deviation 49.3 fL (35.1-46.3)
[2025-09-16] MEDS ORDERED: Dose Adjust by Pharmacy XX STA (05:45)
[2025-09-16 05:53] LABS: Anion Gap 9 mmol/L (3-11); Blood Urea Nitrogen 22 mg/dL (8-24); CO2, Blood 19 mmol/L (21-32); Calcium, Blood 7.5 mg/dL (8.5-10.1); Chloride, Blood 115 mmol/L (98-108); Creatinine, Blood 1.06 mg/dL (0.60-1.20); Glucose, Blood 139 mg/dL (70-99); Magnesium, Blood 2.5 mg/dL (1.6-2.4); Phosphorus, Blood 1.8 mg/dL (2.5-4.9); Potassium, Blood 4.0 mmol/L (3.5-5.5); Sodium, Blood 139 mmol/L (136-145)
--- NOTE | 2025-09-16 06:28 | NUR ---
SHIFT SUMMARY PATIENT A/OX4. DENIED PAIN T/O SHIFT. REPORTS PASSING GAS. ABD NON-TENDER. PATIENT SEEMED TO HAVE WHEEZING IN UPPER AIRWAY FROM PLEGM. PRODUCTIVE COUGH. UTILIZING FLUTTER VALVE FREQENTLY. DEMONSTRATED USE APPROPRIATELY. HOB KEPT ELEVATED. VOIDING WITH PUREWICK IN PLACE. URINE IS TEA COLORED. HEPARIN INFUSING PER EMAR. VERY PLEASANT AND COOPERATIVE. OFFERED TURNS Q2 HR. PLAN OF CARE ONGOING.
[2025-09-16 07:00] VITALS: BP 106/71
[2025-09-16 11:11] VITALS: BP 101/68
[2025-09-16 16:56] VITALS: BP 122/81
--- NOTE | 2025-09-16 18:48 | NUR ---
SHIFT SUMMARY PATIENT REMAINS A/O X 4 AND COOPERATIVE WITH CARE. PT IN AFIB/FLUTTER 80-90s AT REST, LOW 100s WITH COUGH OR EXERTION. PATIENT DENIES CHEST PAIN/PRESSURE. LUNG SOUNDS ARE CLEAR THRGOUHOUT, SATS >95 % ON RA. OCCASIONAL PRODUCTIVE COUGH WITH SMALL AMOUNTS OF WHITE/LYNNE SPUTUM. PT USES SUCTION AT BEDSIDE TO CLEAR SECRETIONS. BOWEL SOUNDS PRESENT IN ALL FOUR QUADRANTS, DENIES ABDOMINAL PAIN. PATIENT UP IN ROOM AND HALLWAY WITH PHYSICAL THERAPY WALKED APPROXIMATELY 50 FEET, TOLERATED WELL. PT HAD A LARGE, FORMED BM AFTER WALKING. HE IS STILL ON FULL LIQUID DIET, TOLERATING WELL. FAMILY AT BEDSIDE FOR MOST OF SHIFT. PATIENT AND FAMILY AGREEABLE TO CARE PLAN. BED LOCKED IN LOWEST SETTING, CALL LIGHT IN REACH/
[2025-09-16 19:40] VITALS: BP 120/74
[2025-09-16 23:35] VITALS: BP 114/73
[2025-09-17 03:50] VITALS: BP 126/75
[2025-09-17 04:04] LABS: BASOPHILS ABSOLUTE AUTO 0.10 K/mm3 (0.00-0.23); BASOPHILS PERCENT AUTO 0 % (0-2); EOSINOPHILS ABSOLUTE AUTO 0.07 K/mm3 (0.00-0.68); EOSINOPHILS PERCENT AUTO 0 % (0-6); Hematocrit 38.4 % (37.0-53.0); Hemoglobin 12.8 g/dL (13.5-17.5); IMMATURE GRAN ABSOLUTE AUTO 1.03 K/mm3 (0.00-0.10); IMMATURE GRAN PERCENT AUTO 4 % (0-1); LYMPHOCYTES ABSOLUTE AUTO 3.85 K/mm3 (0.84-5.20); LYMPHOCYTES PERCENT AUTO 15 % (21-46); MONOCYTES ABSOLUTE AUTO 1.44 K/mm3 (0.16-1.47); MONOCYTES PERCENT AUTO 5 % (4-13); Mean Corpuscular HGB Conc 33.3 g/dL (31.5-36.5); Mean Corpuscular Volume 94 fL (80-100); NEUTROPHILS ABSOLUTE AUTO 20.07 K/mm3 (1.96-9.15); NEUTROPHILS PERCENT AUTO 76 % (41-73); NRBC ABSOLUTE 0.00 K/mm3 (0.00-0.02); NRBC Auto 0.0 /100 WBC (0.0-0.2); Platelet Count 214 K/mm3 (150-400); RDW Coefficient Variation 14.1 % (11.7-14.2); RDW Standard Deviation 48.7 fL (35.1-46.3)
[2025-09-17 04:47] LABS: Anion Gap 7 mmol/L (3-11); Blood Urea Nitrogen 23 mg/dL (8-24); CO2, Blood 22 mmol/L (21-32); Calcium, Blood 7.8 mg/dL (8.5-10.1); Chloride, Blood 114 mmol/L (98-108); Creatinine, Blood 0.99 mg/dL (0.60-1.20); Glucose, Blood 104 mg/dL (70-99); Potassium, Blood 4.1 mmol/L (3.5-5.5); Sodium, Blood 139 mmol/L (136-145); Thyroid Stimulating Hormone 11.500 uIU/mL (0.360-4.800)
--- NOTE | 2025-09-17 05:06 | NUR ---
SHIFT SUMMARY ASSUMED CARE OF PT AT APPROXIMATELY 1900. CARDIAC RHYTHM CONVERTED TO SINUS RHYTHM AT APPROXIMATELY 2300. NO C/O CHEST PAIN OR PRESSURE. NO C/O SOB. PT STILL WITH PRODUCTIVE COUGH USING SELF SUCTION TO CLEAR SECRETIONS. PUREWICK IN PLACE ON CONTINUOUS SUCTION. PT REPOSITIONED Q2H TO PREVENT INJURY/BREAKDOWN. PLEASANT AND COOPERATIVE WITH CARES. VSS. SPO2 >92% ON RA. PT AOX. REHAN TO MAKE ALL NEEDS KNOWN. CALL LIGHT WITHIN REACH AND PT CALLS APPROPRIATELY FOR ASSISTANCE WHEN NEEDED.
[2025-09-17 07:29] VITALS: BP 115/66
[2025-09-17 11:04] VITALS: BP 115/66
[2025-09-17] MEDS ORDERED: LEVSOD88 PO (11:34)
[2025-09-17] MEDS ORDERED: ELIQUIS5 M2 PO (11:35)
[2025-09-17] MEDS ORDERED: Amiodarone HCl200 MG PO (11:35)
[2025-09-17] MEDS ORDERED: DIGOX125 MC1 PO (11:36)
[2025-09-17] MEDS ORDERED: CEPH500 PO (11:36)
--- NOTE | 2025-09-17 12:24 | NUR ---
Discharge Home Pt A&O x4. VSS. Spo2 > 92% on RA. Monitor showing NSR. w/ order for discharge home. Discharge instructions reviewed w/ pt & sent home w/ pt. PIVs removed. Pt taken out in wheelchair w/ belongings at approx 1200.
== END 2025-09-17 12:07 | disposition home or self-care (01) | DRG 388 ==
LOC: ER 15:46 → ERHOLD 18:43 → SURS 18:43 → ICUE 09-12 09:26 → PCU 09-15 02:04
PROVIDERS: Emergency Medicine; Internal Medicine; ADMIT Student in an Organized Health Care Education/Training Program
PROC: 0DH67UZ Insertion of Feeding Device into Stomach, Via Natural or Artificial Opening (ICD-10-PCS; principal; 2025-09-09)
PROC: 3E03329 Introduction of Other Anti-infective into Peripheral Vein, Percutaneous Approach (ICD-10-PCS; 2025-09-14)
DX: K56.609 Unspecified intestinal obstruction, unspecified as to partial versus complete obstruction (principal); A41.51 Sepsis due to Escherichia coli [E. coli]; E87.1 Hypo-osmolality and hyponatremia; I48.92 Unspecified atrial flutter; E87.20 Acidosis, unspecified; N17.9 Acute kidney failure, unspecified; N39.0 Urinary tract infection, site not specified; I12.9 Hypertensive chronic kidney disease with stage 1 through stage 4 chronic kidney disease, or unspecified chronic kidney disease; N18.31 Chronic kidney disease, stage 3a; E78.5 Hyperlipidemia, unspecified; E03.9 Hypothyroidism, unspecified; E83.52 Hypercalcemia; I25.10 Atherosclerotic heart disease of native coronary artery without angina pectoris; E66.9 Obesity, unspecified; I48.0 Paroxysmal atrial fibrillation; E87.6 Hypokalemia; J44.9 Chronic obstructive pulmonary disease, unspecified; E83.39 Other disorders of phosphorus metabolism; D63.1 Anemia in chronic kidney disease; I25.2 Old myocardial infarction; Z98.890 Other specified postprocedural states; Z86.73 Personal history of transient ischemic attack (TIA), and cerebral infarction without residual deficits; Z68.31 Body mass index [BMI] 31.0-31.9, adult; Z79.82 Long term (current) use of aspirin; Z79.890 Hormone replacement therapy; Z79.899 Other long term (current) drug therapy
CPT/HCPCS: 36415; 51701; 71045; 74176; 74177; 80048; 80053; 80162; 80400; 81001; 82330; 82533; 82803; 82947; 83605; 83690; 83735; 84100; 84439; 84443; 85014; 85018; 85025; 85049; 85520; 85610; 85730; 87040; 87077; 87086; 87186; 93005; 93010; 93306; 94640; 94664; 94760; 94762; 96374-59; 97116; 97162; 97530; 99285-25; A9270; J0282; J0696; J0834; J1100; J1160; J1644; J2060; J2765; J3480; J7030; J7040; J7050; Q9967